=== PATIENT | male | born 1990 | race Caucasian/White ===

== ENCOUNTER 2024-05-23 18:39 | Emergency (ER) | payer OTHER, SELFPAY ==
[2024-05-23 18:42] VITALS: BP 172/112
[2024-05-23 19:34] VITALS: BMI 28.7
[2024-05-23] MEDS: OMNIPAQUE 50 ML PO (19:49)
[2024-05-23 19:55] LABS: % Basophils 0.4 % (0-2); % Eosinophils 0.4 % (0-6); % Immature Granulocytes 0.4 % (0-0.5); % Lymphocytes 28.7 % (20.5-51.1); % Neutrophils 66.1 % (42.2-75.2); Absolute Lymphocytes 2.4 10^3/uL (1.2-3.4); Absolute Monocytes 0.3 10^3/uL (0.1-0.6); Absolute Neutrophils 5.5 10^3/uL (1.4-6.5); Hematocrit 42.1 % (39.0-52.0); Hemoglobin 14.1 g/dL (13.0-18.0); Mean Corp Hgb Conc. 33.5 g/dL (33.0-37.0); Mean Corpuscular Hgb 26.2 pg (27.0-31.0); Mean Corpuscular Volume 78.1 fL (80.0-94.0); Mean Platelet Volume 9.4 fL (7.4-10.4); Nucleated Red Blood Cells % 0 % (-); Platelet Count 254 10^3/uL (130-400); Red Blood Cell Count 5.39 10^6/uL (4.70-6.10); Urine Albumin Negative (Neg - Trace); Urine Bilirubin Negative (Negative); Urine Character Clear (Clear); Urine Color Yellow; Urine Glucose Negative (Negative); Urine Ketone Negative (Negative); Urine Leukocyte Negative (Negative); Urine Nitrite Negative (Negative); Urine Occult Blood Negative (Negative); Urine Specific Gravity 1.015 (<1.030); Urine Urobilinogen Negative (Neg - 1+); White Blood Cell Count 8.3 10^3/uL (4.8-10.8)
[2024-05-23 20:19] LABS: ALT (SGPT) 37 U/L (0-50); AST (SGOT) 32 U/L (17-59); Albumin 4.9 g/dl (3.5-5.0); Alkaline Phosphatase 61 U/L (38-126); Blood Urea Nitrogen 11 mg/dl (9-20); Calcium 9.5 mg/dl (8.4-10.2); Carbon Dioxide 26 mmol/L (22-30); Chloride 101 mmol/L (98-107); Estimated Creatinine Clearance > 125 ml/min; Glucose 96 mg/dl (70-99); Lipase 53 U/L (23-300); Potassium 4.2 mmol/L (3.5-5.1); Sodium 140 mmol/L (135-145); Total Bilirubin 0.5 mg/dl (0.2-1.3); Total Protein 7.5 g/dl (6.3-8.2); eGFR > 60.00
[2024-05-23 21:35] VITALS: BP 124/93
--- NOTE | 2024-05-23 23:20 | ED.GENMED ---
History of Present Illness
General
Chief Complaint: Abdominal Pain
Source: patient and significant other
Time Seen by Provider: 05/23/24 19:03
History of Present Illness
History of Present Illness:
33-year-old male who presents with abdominal discomfort has been ongoing about 5 to 6 days. Patient states mostly in the upper part of the abdomen sometimes periumbilical and right lower abd. no fevers. No vomiting. Has been tolerating his meals
well. Cannot really admit to any triggers. No fevers. No urinary symptoms. Also has had some back pain but does have some back pain occasionally because he has had major back surgery for scoliosis.
Past History
Past History
ED Past Medical History: Other (Chiari malformation, scoliosis)
ED Past Surgical History: Orthopedic
Phy Exam
Physical Exam
Physical Exam:
CONSTITUTIONAL Patient alert and oriented to person, place and time. Well-appearing. Vital signs reviewed.
HEAD atraumatic, normocephalic.
EYES eyelids normal to inspection, Extraocular muscles intact, Conjunctiva normal, Sclera normal.
NECK normal range of motion, Trachea midline, no jugular venous distention.
RESPIRATORY CHEST No respiratory distress noted, Chest expansion equal, Bilateral breath sounds clear.
CARDIOVASCULAR regular rate and rhythm, Heart sounds normal.
ABDOMEN abdomen nontender, Bowel sounds normal. No distention.
BACK normal inspection, no obvious deformities
UPPER EXTREMITY range of motion normal, Motor strength normal, no cyanosis, no edema.
LOWER EXTREMITY range of motion normal, Motor strength normal, no cyanosis, no edema.
NEURO Speech normal, No focal motor deficits, Jose coma scale 15, Memory normal, Cranial Nerves intact to screening exam.
SKIN skin warm, dry, and normal in color.
Course
Orders/Labs/Results
Orders:
Orders
05/23/24 19:26
CT Abd/pel W Iv And Oral Contr Urgent
Comment:
Reason For Exam: periumbilical abd pain
Vital Signs- Treatment ONCE
Frequency: Once
Iohexol [Omnipaque] See Protocol PO NOW STA
05/23/24 19:47
Complete Blood Count/With Diff Urgent
Comprehensive Metabolic Panel Urgent
Lipase Urgent
Urinalysis Reflex To Culture Urgent
Date Specimen was Collected: 05/23/24
Time Specimen was Collected: 19:39
Abnormal Lab Results
05/23/24
19:47
MCV 78.1 L fL
(80.0-94.0)
MCH 26.2 L pg
(27.0-31.0)
05/23/24 19:47
05/23/24 19:47
Vital Signs
Initial and Last Documented VS:
Initial Vital Signs
Temp Pulse Resp BP Pulse Ox
98.3 F 114 16 172/112 100
05/23/24 18:42 05/23/24 18:42 05/23/24 18:42 05/23/24 18:42 05/23/24 18:42
Last Documented Vital Signs
Temp Pulse Resp BP Pulse Ox
98.3 F 81 15 155/90 100
05/23/24 18:42 05/23/24 20:15 05/23/24 20:15 05/23/24 23:28 05/23/24 23:28
MDM/Problems Addressed
Differential Diagnosis Includes:
Bowel obstruction, appendicitis, duodenitis, colitis
MDM/Problems Addressed:
Mesenteric adenitis
*Radiology
Radiology exam reviewed: radiology read reviewed
*Pulse Oximetry
Patient hypoxic: no
*Critical Care Note
Total Time (30-74mins, 75-104mins- exclusive of procedures): Not Applicable
Data Reviewed
Source: patient and significant other
Prescriptions/Medications Considered But Not Given:
Considered antibiotics with CT negative for acute infectious process
Patient Management
Escalation/DeEscalation of care consider admission/obs:
CT does show mesenteric adenitis and question may be viral source. I recommended NSAIDs and progression of diet as tolerated. Outpatient follow-up recommended
ED Attending Note
-
Portions of this chart may have been created with voice recognition software.� Occasional wrong word or��sound alike� substitutions may have occurred due to the inherent limitations of voice recognition software.
Discharge Plan
Departure
Patient Disposition: Home (Routine Discharge)
Date of Disposition: 05/23/24
Time of Disposition: 23:21
Patient with high blood pressure during this ER visit?: Yes
Discharge Problem:
Abdominal pain, Mesenteric adenitis
Instructions: Mesenteric Lymphadenitis, Abdominal Pain
Referrals:
Donta Allen DO [Family Provider] -
Activity Restrictions/Additional Instructions:
Please use ibuprofen every 6 hours for discomfort. Please drink plenty of fluids. Return immediately for worsening pain, localized pain, fevers, intractable vomiting or any other concerns. Please see your doctor in the next 1 week for follow-up
if any symptoms persist.
Interventions
Interventions:
*Risk Screen - Suicide Last Done: 05/23/24 20:14
*General Assessment Last Done: 05/23/24 20:14
*Neglect/Abuse Screening Last Done: 05/23/24 20:14
ED- Fall Risk Assessment Last Done: 05/23/24 20:15
*ED COVID-19 Vaccine History Last Done: 05/23/24 20:14
*Nursing Disposition Last Done: 05/23/24 23:32
TA-Nwgmlh-Nepzhbmrsc Assessment Last Done: 05/23/24 20:15
Discharge Date and Time
Discharge Date/Time: 05/23/24 23:32
Print Language: MARTINIQUAIS
[2024-05-23 23:28] VITALS: BP 155/90
== END 2024-05-23 23:32 | disposition home or self-care (01) ==
LOC: EMR 18:39
PROVIDERS: EMERGENCY PHYSICIAN Emergency Medicine; FAMILY PHYSICIAN Family Medicine
DX: I88.0 Nonspecific mesenteric lymphadenitis (principal); M54.9 Dorsalgia, unspecified; Z98.890 Other specified postprocedural states
CPT/HCPCS: 99284; 74177; 80053; 81003; 83690; 85025; Q9967